=== PATIENT | female | born 1970 | race Caucasian/White ===

== ENCOUNTER 2022-02-03 20:41 | Observation (INO) | payer OTHER, BC ==
[~2022-02-03 20:41] MED LIST: Iopamidol-370 76% 500 ML 1 ML ONE
[2022-02-03] MEDS ORDERED: Morphine 4 MG/ML VIAL ONE (20:51)
[2022-02-03] MEDS ORDERED: Ondansetron PF 4 MG/2 ML Vial ONE (20:51)
[2022-02-03 21:09] LABS: #Basophils 0.1 thou/uL (0.0-0.2); #Eosinphils 0.3 thou/uL (0.0-0.7); #Lymphocytes 3.5 thou/uL (1.20-3.40); #Monocytes 0.7 thou/uL (0.11-0.59); #Neutrophils 10.5 thou/uL (1.40-6.50); %Basophils 0.5 % (0.0-1.0); %Monocytes 4.4 % (0.0-10.0); %Neutrophils 70.1 % (42.0-75.0); Mean Corpuscular HGB CONC 34.2 g/dL (32.0-36.0); Mean Corpuscular Hemoglobin 31.1 pg (27.0-31.0); Mean Corpuscular Volume 90.9 fL (78.0-98.0); Mean Platelet Volume 6.8 fL (7.4-10.4); Platelet Count 346 thou/uL (130-400); RBC Distribution Width 11.8 % (11.5-14.5); Red Blood Cell (RBC) Count 4.19 mill/uL (4.20-5.40)
[2022-02-03 21:20] LABS: INR-International Normal Ratio 1.1; Prothrombin Time 14.1 sec (12.0-14.7)
[2022-02-03 21:30] LABS: ALT (SGPT) 28 U/L (8-55); AST (SGOT) 38 U/L (5-34); Albumin 3.9 g/dL (3.5-5.0); Alkaline Phosphatase 69 U/L (40-110); Anion Gap 11 mmol/L (10-20); BUN (Urea Nitrogen) 20 mg/dL (9.8-20.1); Bilirubin, Total 0.3 mg/dL (0.2-1.2); Calc. Creatinine Clearance 0 mL/min (70-130); Calcium 8.8 mg/dL (7.8-10.44); Carbon Dioxide 27 mmol/L (22-29); Chloride 106 mmol/L (98-107); Estimated GFR 76; Globulin 2.6 g/dL (2.4-3.5); Glucose 115 mg/dL (70-105); Potassium 4.1 mmol/L (3.5-5.1); Protein, Total 6.5 g/dL (6.0-8.3); Sodium 140 mmol/L (136-145)
[2022-02-03] MEDS ORDERED: Fentanyl 100 MCG/2 ML VIAL ONE (21:35)
[2022-02-03] MEDS ORDERED: Promethazine HCl 25 MG/ML VIAL IM PRN (22:16)
[2022-02-03] MEDS ORDERED: traMADol HCl 50 MG TAB PO PRN (22:22)
[2022-02-03 23:48] VITALS: BMI 24.1
[2022-02-03] MEDS: traMADol HCl 50 MG TAB PO SCH (23:56)
[2022-02-03] MEDS: Acetaminophen 500 MG TAB PO SCH (23:57)
[2022-02-03] MEDS ORDERED: Acetaminophen 325 MG TAB PO SCH (23:59)
[2022-02-04] MEDS: Ondansetron PF 4 MG/2 ML Vial IVP PRN ×2 (00:15→17:50)
[2022-02-04 03:07] LABS: SARS-CoV-2 NAA Rapid Test Not Detected (NotDetected)
[2022-02-04] MEDS ORDERED: Hydrocortisone Sod Succ/PF 100 mg/2 ml Vial IVP SCH ×2 (03:45→06:00)
[2022-02-04 04:40] LABS: #Lymphocytes 0.9 thou/uL (1.20-3.40); #Monocytes 0.9 thou/uL (0.11-0.59); #Neutrophils 12.8 thou/uL (1.40-6.50); %Basophils 0.1 % (0.0-1.0); %Eosinophils 0.1 % (0.0-10.0); %Lymphocytes 6.2 % (21.0-51.0); %Monocytes 6.1 % (0.0-10.0); %Neutrophils 87.5 % (42.0-75.0); Hemoglobin 10.4 g/dL (12.0-16.0); Mean Corpuscular Hemoglobin 31.3 pg (27.0-31.0); Mean Corpuscular Volume 92.1 fL (78.0-98.0); Mean Platelet Volume 7.1 fL (7.4-10.4); Platelet Count 241 thou/uL (130-400); RBC Distribution Width 11.7 % (11.5-14.5); Red Blood Cell (RBC) Count 3.31 mill/uL (4.20-5.40); White Blood Cell (WBC) Count 14.6 thou/uL (4.8-10.8)
[2022-02-04] MEDS ORDERED: Lactated Ringer's 1,000 ML IV SCH (04:45)
[2022-02-04] MEDS: Acetaminophen 500 MG TAB PO SCH ×4 (06:24→23:17)
[2022-02-04] MEDS: traMADol HCl 50 MG TAB PO SCH ×3 (06:26→23:18)
[2022-02-04] MEDS: FLUoxetine HCl 20 MG CAP PO SCH (08:48)
[2022-02-04] MEDS: Ascorbic Acid 500 mg Chewable Tablet PO SCH ×2 (08:48→20:46)
[2022-02-04] MEDS: Ferrous Sulfate 325 MG TAB PO SCH ×2 (08:48→17:50)
[2022-02-04] MEDS: Famotidine 20 MG TAB PO SCH ×2 (08:48→20:46)
[2022-02-04] MEDS: Gabapentin 300 MG CAP PO SCH ×3 (08:49→20:45)
[2022-02-04] MEDS: Famotidine/PF 20 mg/2ml Vial SLOW IVP SCH ×2 (08:50→20:45)
[2022-02-04] MEDS: Polyethylene Glycol 3350 17 GM Packet PO SCH (08:50)
[2022-02-04] MEDS: Senokot S 8.6-50 MG TAB PO SCH ×2 (08:50→20:45)
[2022-02-04] MEDS ORDERED: Senokot S 8.6-50 MG TAB PO SCH (09:00)
[2022-02-04] MEDS ORDERED: Polyethylene Glycol 3350 17 GM Packet PO SCH (09:00)
[2022-02-04] MEDS ORDERED: traMADol HCl 50 MG TAB PO SCH (11:15)
[2022-02-04 11:39] LABS: #Lymphocytes 0.8 thou/uL (1.20-3.40); #Monocytes 0.5 thou/uL (0.11-0.59); #Neutrophils 9.7 thou/uL (1.40-6.50); %Basophils 0.1 % (0.0-1.0); %Eosinophils 0.1 % (0.0-10.0); %Lymphocytes 6.8 % (21.0-51.0); %Monocytes 4.6 % (0.0-10.0); %Neutrophils 88.4 % (42.0-75.0); Hemoglobin 9.4 g/dL (12.0-16.0); Mean Corpuscular Hemoglobin 31.3 pg (27.0-31.0); Mean Platelet Volume 6.8 fL (7.4-10.4); Platelet Count 200 thou/uL (130-400); RBC Distribution Width 11.6 % (11.5-14.5); Red Blood Cell (RBC) Count 2.99 mill/uL (4.20-5.40)
[2022-02-04 11:59] LABS: Calcium 8.6 mg/dL (7.8-10.44); Chloride 106 mmol/L (98-107); Potassium 4.2 mmol/L (3.5-5.1); Sodium 139 mmol/L (136-145)
[2022-02-04 12:00] LABS: Glucose 127 mg/dL (70-105)
[2022-02-04 12:01] LABS: Anion Gap 12 mmol/L (10-20); Carbon Dioxide 25 mmol/L (22-29)
[2022-02-04 12:03] LABS: Calc. Creatinine Clearance 101 mL/min (70-130); Estimated GFR 100; Phosphorus 3.1 mg/dL (2.3-4.7)
[2022-02-04 12:04] LABS: BUN (Urea Nitrogen) 15 mg/dL (9.8-20.1)
[2022-02-04] MEDS: Bupropion 150 MG SR TAB PO SCH (13:37)
[2022-02-04] MEDS ORDERED: Lidocaine 5% Patch TD SCH (17:00)
[2022-02-04] MEDS: Cyclobenzaprine 10 MG TAB PO PRN (20:51)
[2022-02-05] MEDS ORDERED: Transdermal Patch Removal TOP SCH (05:00)
[2022-02-05 05:47] LABS: Hemoglobin 8.5 g/dL (12.0-16.0)
[2022-02-05] MEDS: Acetaminophen 500 MG TAB PO SCH ×2 (05:56→12:05)
[2022-02-05] MEDS: traMADol HCl 50 MG TAB PO SCH ×2 (05:57→12:04)
[2022-02-05] MEDS: Cyclobenzaprine 10 MG TAB PO PRN (09:58)
[2022-02-05] MEDS: Polyethylene Glycol 3350 17 GM Packet PO SCH (09:59)
[2022-02-05] MEDS: Senokot S 8.6-50 MG TAB PO SCH (09:59)
[2022-02-05] MEDS: Bupropion 150 MG SR TAB PO SCH (09:59)
[2022-02-05] MEDS: FLUoxetine HCl 20 MG CAP PO SCH (10:00)
[2022-02-05] MEDS: Ascorbic Acid 500 mg Chewable Tablet PO SCH (10:00)
[2022-02-05] MEDS: Famotidine/PF 20 mg/2ml Vial SLOW IVP SCH (10:00)
[2022-02-05] MEDS: Famotidine 20 MG TAB PO SCH (10:01)
[2022-02-05] MEDS: Ferrous Sulfate 325 MG TAB PO SCH (10:01)
[2022-02-05] MEDS: Gabapentin 300 MG CAP PO SCH (10:10)
[2022-02-05 12:59] VITALS: BP 95/60; TEMP 97.7
== END 2022-02-05 13:40 | disposition home or self-care (01) ==
LOC: ERS 20:41 → SJJU 22:16
PROVIDERS: ADMIT Specialist; ATTEND Specialist
DX: S30.0XXA Contusion of lower back and pelvis, initial encounter (principal); S32.029A Unspecified fracture of second lumbar vertebra, initial encounter for closed fracture; S32.039A Unspecified fracture of third lumbar vertebra, initial encounter for closed fracture; S32.049A Unspecified fracture of fourth lumbar vertebra, initial encounter for closed fracture; S32.059A Unspecified fracture of fifth lumbar vertebra, initial encounter for closed fracture; Z79.899 Other long term (current) drug therapy; Z88.2 Allergy status to sulfonamides; Z20.822 Contact with and (suspected) exposure to COVID-19; V80.010A Animal-rider injured by fall from or being thrown from horse in noncollision accident, initial encounter; Y93.52 Activity, horseback riding
CPT/HCPCS: 36415; 36416; 70450; 71260; 72125; 72170; 74177; 80048; 80053; 82533; 83735; 84100; 85014; 85018; 85025; 85610; 85730; 86850; 86900; 86901; 93005; 96374; 96375; 96376; G0378; J1720; J2270; J2405; J3010; P9045; Q9967; S0028; U0002

== ENCOUNTER 2022-02-23 10:17 | Outpatient (CLI) | payer BC | END 2022-02-23 10:18 | disposition home or self-care (01) | LOC: MRI 10:17 | PROVIDERS: ATTEND Specialist | DX: M25.551 Pain in right hip (principal) ==